=== PATIENT | male | born 1955 | race Caucasian/White ===

== ENCOUNTER 2017-04-10 13:51 | Emergency (ER) | payer MEDICAID ==
[~2017-04-10] VITALS: Ht 167.6 cm; Wt 68.4 kg
[2017-04-10 14:39] VITALS: Ht 167.6 cm; Wt 68.4 kg
[2017-04-10] MEDS ORDERED: traMADol 50 MG TAB PO ONE (15:30)
--- NOTE | 2017-04-10 15:49 | ERD ---
ER Documentation Chief Complaint Chief Complaint low back pain, shoulder pain x 2 weeks HPI 62-year-old male otherwise healthy presents with low back pain, left shoulder pain for 2 weeks as well as left lower leg swelling for a week. Patient describes diffuse left anterior shoulder pain that is worse with movement, she has had this for almost 2 weeks now and also low back pain. He denies shortness of breath, chest pain. ROS All systems reviewed and are negative except as per history of present illness. Medications Home Meds Active Scripts Acetaminophen* (Tylophen*) 500 Mg Capsule, 1 CAP PO Q6H Y for PAIN AND OR ELEVATED TEMP, #20 CAP Prov:KARL FLORENCE PA-C 04/10/17 Naproxen* (Naprosyn*) 500 Mg Tablet, 500 MG PO BID Y for PAIN AND/OR INFLAMMATION, #30 TAB Prov:KARL FLORENCE PA-C 04/10/17 PMhx/Soc Medical and Surgical Hx: pt denies Medical Hx, pt denies Surgical Hx History of Surgery: No Anesthesia Reaction: No Hx Neurological Disorder: No Hx Respiratory Disorders: No Hx Cardiac Disorders: No Hx Psychiatric Problems: No Hx Miscellaneous Medical Probl: No Hx Alcohol Use: No Hx Substance Use: No Hx Tobacco Use: No Smoking Status: Never smoker Physical Exam Vitals Vital Signs Date Time Temp Pulse Resp B/P Pulse Ox O2 Delivery O2 Flow Rate FiO2 04/10/17 14:39 98.4 69 16 161/94 100 Physical Exam General: Well-developed, well-nourished. The patient appears in no acute distress. HEENT: Head is normocephalic, atraumatic. No scleral icterus. Neck: Supple. Nontender. Lungs: Clear to auscultation. Normal air movement. Heart: Regular rate and rhythm. S1 and S2 are normal. No murmurs, gallops, or rubs. Abdomen: Soft, nontender, nondistended. Bowel sounds are normoactive. Extremities: Left shoulder has full range of motion, however there is reproducible pain with active range of motion. No bony deformities. There is swelling to the left lower extremity to the calf and foot. Pulses palpable, no cyanosis. Neurologic: Alert and oriented 3. No focal deficits. Skin: Normal turgor. No rash or lesions. Result Diagram: 04/10/17 1545 04/10/17 1545 Results 24 hrs Laboratory Tests Test 04/10/17 15:45 White Blood Count 5.410^3/ul Red Blood Count 3.5910^6/ul Hemoglobin 12.7g/dl Hematocrit 36.7% Mean Corpuscular Volume 102.2fl Mean Corpuscular Hemoglobin 35.4pg Mean Corpuscular Hemoglobin Concent 34.6g/dl Red Cell Distribution Width 13.0% Platelet Count 58979^3/UL Mean Platelet Volume 9.9fl Neutrophils % 64.0% Lymphocytes % 24.3% Monocytes % 7.2% Eosinophils % 3.2% Basophils % 0.7% Nucleated Red Blood Cells % 0.0/100WBC Neutrophils # 3.510^3/ul Lymphocytes # 1.310^3/ul Monocytes # 0.410^3/ul Eosinophils # 0.210^3/ul Basophils # 0.010^3/ul Nucleated Red Blood Cells # 0.010^3/ul Urine Color YELLOW Urine Clarity CLEAR Urine pH 5.0 Urine Specific [place] 1.020 Urine Ketones NEGATIVEmg/dL Urine Nitrite NEGATIVEmg/dL Urine Bilirubin NEGATIVEmg/dL Urine Urobilinogen 2+mg/dL Urine Leukocyte Esterase NEGATIVELeu/ul Urine Hemoglobin NEGATIVEmg/dL Urine Glucose NEGATIVEmg/dL Urine Total Protein NEGATIVEmg/dl Sodium Level 144mmol/L Potassium Level 3.9mmol/L Chloride Level 103mmol/L Carbon Dioxide Level 30mmol/L Anion Gap 15 Blood Urea Nitrogen 4mg/dl Creatinine 0.63mg/dl Glucose Level 101mg/dl Calcium Level 8.6mg/dl Total Bilirubin 0.2mg/dl Direct Bilirubin 0.00mg/dl Indirect Bilirubin 0.2mg/dl Aspartate Amino Transf (AST/SGOT) 33IU/L Alanine Aminotransferase (ALT/SGPT) 29IU/L Alkaline Phosphatase 124IU/L Total Protein 7.6g/dl Albumin 4.0g/dl Globulin 3.60g/dl Albumin/Globulin Ratio 1.11 Current Medications Medications (Trade) Dose Ordered Sig/Abdi Route PRN Reason Start Time Stop Time Status Last Admin Dose Admin Tramadol HCl (Ultram) 50 mg ONCE ONCE PO 04/10/17 15:30 04/10/17 15:31 DC 04/10/17 16:21 12-lead EKG(interpreted by supervising physician): Dr. Reyes-Panda Rate/Rhythm: Normal Sinus Rhythm, rate of 72 QRS, ST, T-waves: No changes consistent w/ acute ischemia, no intervals, no dysrhythmias, no ectopy Impression: No evidence of ischemia or arrhythmia DIAGNOSTIC IMAGING REPORT Patient: ASHA WHITFIELD : 1955 Age: 62 Sex: M MR #: [id number] DOS: 04/10/17 1549 Ordering MD: KARL FLORENCE PA-C Location: [facility] Room/Bed: PROCEDURE: XR Left Shoulder. CLINICAL INDICATION: Left shoulder pain. TECHNIQUE: Three views. Frontal internal rotation, frontal external rotation , and scapular Y-view. COMPARISON: No prior study is available for comparison. FINDINGS: There is no fracture or dislocation. The soft tissues are normal. Articular surfaces are intact. There is no lytic or blastic lesion. There is no radiopaque foreign body. IMPRESSION: 1. Normal images of the left shoulder. RPTAT: QQ .Tato Garcia MD, Date Time Electronically viewed and signed by .Tato Garcia MD, on 04/10/2017 17:13 .R/ CC: KARL FLORENCE PA-C DIAGNOSTIC IMAGING REPORT Patient: SAHA WHITFIELD : 1955 Age: 62 Sex: M MR #: [id number] DOS: 04/10/17 1549 Ordering MD: KARL FLORENCE PA-C Location: [facility] Room/Bed: PROCEDURE: XR Lumbar Spine. CLINICAL INDICATION: Back pain. TECHNIQUE: Three views. AP, lateral and cone-down lateral view of the lumbar spine were obtained. COMPARISON: No prior studies are available for comparison. FINDINGS: There is normal stature and alignment of the vertebrae. There is no fracture. There is no lytic or blastic lesion. There are degenerative changes with small osteophytes throughout. There is disc space narrowing at L5-S1 and hypertrophy of the facet joints at L4-5 and L5-S1. Vascular calcifications are present consistent with atherosclerosis. IMPRESSION: 1. Degenerative changes as described above. 2. Atherosclerosis. RPTAT: QQ .Tato Garcia MD, Date Time Electronically viewed and signed by .Tato Garcia MD, on 04/10/2017 17:13 .R/ CC: KARL FLORENCE PA-C DIAGNOSTIC IMAGING REPORT Patient: ASHA WHITFIELD : 1955 Age: 62 Sex: M MR #: [id number] DOS: 04/10/17 1528 Ordering MD: KARL FLORENCE PA-C Location: [facility] Room/Bed: PROCEDURE: US Lower extremity Venous. CLINICAL INDICATION: Left leg pain and swelling TECHNIQUE: Multiple sonographic images of the left lower extremity deep venous system was obtained utilizing grayscale, color-flow, compressive sonography and doppler imaging with augmentation. The images were reviewed on a PACS workstation. COMPARISON: None. FINDINGS: There is normal compressibility and flow within the left common femoral, deep femoral, superficial femoral and popliteal veins. Normal color flow is seen with respiratory variability and augmentation. IMPRESSION: No sonographic evidence for deep venous thrombosis in the left lower extremity. RPTAT: HPNM Physician Jenniffer Date Time Electronically viewed and signed by Physician Jenniffer on 04/10/2017 16 :15 / CC: KARL FLORENCE PA-C Procedures/[facility] M: 62-year-old male presents emergency room with low back pain, left shoulder pain, peripheral edema on the left side. Patient's EKG shows normal sinus rhythm, he had basic labs and there were no unremarkable the left shoulder is normal on x-ray, and lumbar spine series x-ray shows degenerative disc disease. Patient also presents with peripheral edema that is unilateral on the left side, and is to his foot and lower half of his leg, there is no evidence of DVT. I do not see signs of CHF exacerbation, cellulitis, limb threatening process, arterial injury. The patient is to recheck with his primary care doctor. Will be given Tylenol and Naprosyn for pain. Patient's blood pressure was elevated (>120/80) but appears stable without evidence of hypertension emergency or urgency. The patient was counseled about the risks of hypertension and urged to pursue outpatient monitoring and therapy within a week with their primary care physician. Departure Diagnosis: Primary Impression: Low back pain Additional Impressions: Shoulder pain, left Peripheral edema Condition: KARL Mauro PA-C Apr 10, 2017 15:49
--- NOTE | 2017-04-10 15:49 | ERD ---
ER Documentation Chief Complaint Chief Complaint low back pain, shoulder pain x 2 weeks HPI 62-year-old male otherwise healthy presents with low back pain, left shoulder pain for 2 weeks as well as left lower leg swelling for a week. Patient describes diffuse left anterior shoulder pain that is worse with movement, she has had this for almost 2 weeks now and also low back pain. He denies shortness of breath, chest pain. ROS All systems reviewed and are negative except as per history of present illness. Medications Home Meds Active Scripts Acetaminophen* (Tylophen*) 500 Mg Capsule, 1 CAP PO Q6H Y for PAIN AND OR ELEVATED TEMP, #20 CAP Prov:KARL FLORENCE PA-C 04/10/17 Naproxen* (Naprosyn*) 500 Mg Tablet, 500 MG PO BID Y for PAIN AND/OR INFLAMMATION, #30 TAB Prov:KARL FLORENCE PA-C 04/10/17 PMhx/Soc Medical and Surgical Hx: pt denies Medical Hx, pt denies Surgical Hx History of Surgery: No Anesthesia Reaction: No Hx Neurological Disorder: No Hx Respiratory Disorders: No Hx Cardiac Disorders: No Hx Psychiatric Problems: No Hx Miscellaneous Medical Probl: No Hx Alcohol Use: No Hx Substance Use: No Hx Tobacco Use: No Smoking Status: Never smoker Physical Exam Vitals Vital Signs Date Time Temp Pulse Resp B/P Pulse Ox O2 Delivery O2 Flow Rate FiO2 04/10/17 14:39 98.4 69 16 161/94 100 Physical Exam General: Well-developed, well-nourished. The patient appears in no acute distress. HEENT: Head is normocephalic, atraumatic. No scleral icterus. Neck: Supple. Nontender. Lungs: Clear to auscultation. Normal air movement. Heart: Regular rate and rhythm. S1 and S2 are normal. No murmurs, gallops, or rubs. Abdomen: Soft, nontender, nondistended. Bowel sounds are normoactive. Extremities: Left shoulder has full range of motion, however there is reproducible pain with active range of motion. No bony deformities. There is swelling to the left lower extremity to the calf and foot. Pulses palpable, no cyanosis. Neurologic: Alert and oriented 3. No focal deficits. Skin: Normal turgor. No rash or lesions. Result Diagram: 04/10/17 1545 04/10/17 1545 Results 24 hrs Laboratory Tests Test 04/10/17 15:45 White Blood Count 5.410^3/ul Red Blood Count 3.5910^6/ul Hemoglobin 12.7g/dl Hematocrit 36.7% Mean Corpuscular Volume 102.2fl Mean Corpuscular Hemoglobin 35.4pg Mean Corpuscular Hemoglobin Concent 34.6g/dl Red Cell Distribution Width 13.0% Platelet Count 15136^3/UL Mean Platelet Volume 9.9fl Neutrophils % 64.0% Lymphocytes % 24.3% Monocytes % 7.2% Eosinophils % 3.2% Basophils % 0.7% Nucleated Red Blood Cells % 0.0/100WBC Neutrophils # 3.510^3/ul Lymphocytes # 1.310^3/ul Monocytes # 0.410^3/ul Eosinophils # 0.210^3/ul Basophils # 0.010^3/ul Nucleated Red Blood Cells # 0.010^3/ul Urine Color YELLOW Urine Clarity CLEAR Urine pH 5.0 Urine Specific [place] 1.020 Urine Ketones NEGATIVEmg/dL Urine Nitrite NEGATIVEmg/dL Urine Bilirubin NEGATIVEmg/dL Urine Urobilinogen 2+mg/dL Urine Leukocyte Esterase NEGATIVELeu/ul Urine Hemoglobin NEGATIVEmg/dL Urine Glucose NEGATIVEmg/dL Urine Total Protein NEGATIVEmg/dl Sodium Level 144mmol/L Potassium Level 3.9mmol/L Chloride Level 103mmol/L Carbon Dioxide Level 30mmol/L Anion Gap 15 Blood Urea Nitrogen 4mg/dl Creatinine 0.63mg/dl Glucose Level 101mg/dl Calcium Level 8.6mg/dl Total Bilirubin 0.2mg/dl Direct Bilirubin 0.00mg/dl Indirect Bilirubin 0.2mg/dl Aspartate Amino Transf (AST/SGOT) 33IU/L Alanine Aminotransferase (ALT/SGPT) 29IU/L Alkaline Phosphatase 124IU/L Total Protein 7.6g/dl Albumin 4.0g/dl Globulin 3.60g/dl Albumin/Globulin Ratio 1.11 Current Medications Medications (Trade) Dose Ordered Sig/Abdi Route PRN Reason Start Time Stop Time Status Last Admin Dose Admin Tramadol HCl (Ultram) 50 mg ONCE ONCE PO 04/10/17 15:30 04/10/17 15:31 DC 04/10/17 16:21 12-lead EKG(interpreted by supervising physician): Dr. Reyes-Panda Rate/Rhythm: Normal Sinus Rhythm, rate of 72 QRS, ST, T-waves: No changes consistent w/ acute ischemia, no intervals, no dysrhythmias, no ectopy Impression: No evidence of ischemia or arrhythmia DIAGNOSTIC IMAGING REPORT Patient: ASHA WHITFIELD : 1955 Age: 62 Sex: M MR #: [id number] DOS: 04/10/17 1549 Ordering MD: KARL FLORENCE PA-C Location: [facility] Room/Bed: PROCEDURE: XR Left Shoulder. CLINICAL INDICATION: Left shoulder pain. TECHNIQUE: Three views. Frontal internal rotation, frontal external rotation , and scapular Y-view. COMPARISON: No prior study is available for comparison. FINDINGS: There is no fracture or dislocation. The soft tissues are normal. Articular surfaces are intact. There is no lytic or blastic lesion. There is no radiopaque foreign body. IMPRESSION: 1. Normal images of the left shoulder. RPTAT: QQ .Tato Garcia MD, Date Time Electronically viewed and signed by .Tato Garcia MD, on 04/10/2017 17:13 .R/ CC: KARL FLORENCE PA-C DIAGNOSTIC IMAGING REPORT Patient: ASHA WHITFIELD : 1955 Age: 62 Sex: M MR #: [id number] DOS: 04/10/17 1549 Ordering MD: KARL FLORENCE PA-C Location: [facility] Room/Bed: PROCEDURE: XR Lumbar Spine. CLINICAL INDICATION: Back pain. TECHNIQUE: Three views. AP, lateral and cone-down lateral view of the lumbar spine were obtained. COMPARISON: No prior studies are available for comparison. FINDINGS: There is normal stature and alignment of the vertebrae. There is no fracture. There is no lytic or blastic lesion. There are degenerative changes with small osteophytes throughout. There is disc space narrowing at L5-S1 and hypertrophy of the facet joints at L4-5 and L5-S1. Vascular calcifications are present consistent with atherosclerosis. IMPRESSION: 1. Degenerative changes as described above. 2. Atherosclerosis. RPTAT: QQ .Tato Garcia MD, Date Time Electronically viewed and signed by .Tato Garcia MD, on 04/10/2017 17:13 .R/ CC: KARL FLORENCE PA-C DIAGNOSTIC IMAGING REPORT Patient: ASHA WHITFIELD : 1955 Age: 62 Sex: M MR #: [id number] DOS: 04/10/17 1528 Ordering MD: KARL FLORENCE PA-C Location: [facility] Room/Bed: PROCEDURE: US Lower extremity Venous. CLINICAL INDICATION: Left leg pain and swelling TECHNIQUE: Multiple sonographic images of the left lower extremity deep venous system was obtained utilizing grayscale, color-flow, compressive sonography and doppler imaging with augmentation. The images were reviewed on a PACS workstation. COMPARISON: None. FINDINGS: There is normal compressibility and flow within the left common femoral, deep femoral, superficial femoral and popliteal veins. Normal color flow is seen with respiratory variability and augmentation. IMPRESSION: No sonographic evidence for deep venous thrombosis in the left lower extremity. RPTAT: HPNM Physician Jenniffer Date Time Electronically viewed and signed by Physician Jenniffer on 04/10/2017 16 :15 / CC: KARL FLORENCE PA-C Procedures/[facility] M: 62-year-old male presents emergency room with low back pain, left shoulder pain, peripheral edema on the left side. Patient's EKG shows normal sinus rhythm, he had basic labs and there were no unremarkable the left shoulder is normal on x-ray, and lumbar spine series x-ray shows degenerative disc disease. Patient also presents with peripheral edema that is unilateral on the left side, and is to his foot and lower half of his leg, there is no evidence of DVT. I do not see signs of CHF exacerbation, cellulitis, limb threatening process, arterial injury. The patient is to recheck with his primary care doctor. Will be given Tylenol and Naprosyn for pain. Patient's blood pressure was elevated (>120/80) but appears stable without evidence of hypertension emergency or urgency. The patient was counseled about the risks of hypertension and urged to pursue outpatient monitoring and therapy within a week with their primary care physician. Departure Diagnosis: Primary Impression: Low back pain Additional Impressions: Shoulder pain, left Peripheral edema Condition: KARL Mauro PA-C Apr 10, 2017 15:49
--- NOTE | 2017-04-10 16:15 | RADRPT ---
PROCEDURE: US Lower extremity Venous. CLINICAL INDICATION: Left leg pain and swelling TECHNIQUE: Multiple sonographic images of the left lower extremity deep venous system was obtained utilizing grayscale, color-flow, compressive sonography and doppler imaging with augmentation. The images were reviewed on a PACS workstation. COMPARISON: None. FINDINGS: There is normal compressibility and flow within the left common femoral, deep femoral, superficial f emoral and popliteal veins. Normal color flow is seen with respiratory variability and augmentation. IMPRESSION: No sonographic evidence for deep venous thrombosis in the left lower extremity. RPTAT: HPNM Physician Jenniffer Date Time Electronically viewed and signed by Physician Jenniffer on 04/10/2017 16:15 /
--- NOTE | 2017-04-10 17:13 | RADRPT ---
PROCEDURE: XR Left Shoulder. CLINICAL INDICATION: Left shoulder pain. TECHNIQUE: Three views. Frontal internal rotation, frontal external rotation, and scapular Y-view . COMPARISON: No prior study is available for comparison. FINDINGS: There is no fracture or dislocation. The soft tissues are normal. Articular surfaces are intact. There is no lytic or blastic lesion. There is no radiopaque foreign body. IMPRESSION: 1. Normal images of the left shoulder. RPTAT: QQ .Tato Garcia MD, MD Date Time Electronically viewed and signed by .Tato Garcia MD, on 04/10/2017 17:13 .R/
--- NOTE | 2017-04-10 17:14 | RADRPT ---
PROCEDURE: XR Lumbar Spine. CLINICAL INDICATION: Back pain. TECHNIQUE: Three views. AP, lateral and cone-down lateral view of the lumbar spine were obtained. COMPARISON: No prior studies are available for comparison. FINDINGS: There is normal stature and alignment of the vertebrae. There is no fracture. There is no lytic or blastic lesion. There are degenerative changes with small osteophytes throughout. There is disc space narrowing at L 5-S1 and hypertrophy of the facet joints at L4-5 and L5-S1. Vascular calcifications are present consistent with atherosclerosis. IMPRESSION: 1. Degenerative changes as described above. 2. Atherosclerosis. RPTAT: QQ .Tato Garcia MD, MD Date Time Electronically viewed and signed by .Tato Garcia MD, on 04/10/2017 17:13 .R/
[2017-04-10] MEDS ORDERED: NAPR-260 PO (17:23)
[2017-04-10] MEDS ORDERED: ACET500C5 PO (17:23)
== END 2017-04-10 17:42 | disposition home or self-care (01) ==
LOC: FTE 13:51
DX: M54.5 Low back pain (principal); M25.512 Pain in left shoulder; R60.0 Localized edema
CPT/HCPCS: 36415; 72100; 73030; 80053; 81003; 85025; 93005; 93971; Z7502; Z7610

== ENCOUNTER 2017-04-29 18:39 | Inpatient (IN) | payer MEDICAID ==
[~2017-04-29] VITALS: Ht 167.6 cm; Wt 68.1 kg
[~2017-04-29 18:39] MED LIST: ACET500C5 PO; NAPR-260 PO
[2017-04-29] MEDS ORDERED: morphine 4 MG/ML VIAL IV STA ×2 (19:08→22:15)
[2017-04-29] MEDS ORDERED: ONDANSETRON 4 MG INJ IV STA (19:08)
[2017-04-29] MEDS ORDERED: SOD CHLORIDE 0.9% 1,000 ML IV STA (19:08)
[2017-04-29 19:36] LABS: HEMOGLOBIN 11.5 g/dl (14.0-18.0); MEAN CORPUSCULAR HEMOGLOBIN 33.9 pg (29.0-33.0); MEAN CORPUSCULAR HGB CONC 34.8 g/dl (32.0-37.0); MEAN CORPUSCULAR VOLUME 97.3 fl (82.0-101.0); MEAN PLATELET VOLUME 11.6 fl (7.4-10.4); POSITIVE DIFF @See below; RED BLOOD COUNT 3.39 10^6/ul (4.70-6.10); RED CELL DISTRIBUTION WIDTH 12.7 % (11.5-14.5); WHITE BLOOD COUNT 6.4 10^3/ul (4.8-10.8)
[2017-04-29 19:46] LABS: PLATELET COUNT 139 10^3/UL (140-415)
[2017-04-29] MEDS ORDERED: LACTATED RINGER'S 1,000 ML IV ONE (20:00)
[2017-04-29 20:08] LABS: ANISOCYTOSIS 2+ (0-0); BASOPHILS % (M) 1 % (0-2); BURR CELLS 1+ (0-0); EOSINOPHILS % (M) 1 % (0-7); GIANT THROMBO% (M) 1 % (0-0); METAMYELOCYTES %M 1 % (0-0); MONOCYTES % (M) 6 % (0-11); PLATELET ESTIMATE DECREASED; POIKILOCYTOSIS 1+ (0-0)
--- NOTE | 2017-04-29 21:00 | RADRPT ---
PROCEDURE: CT abdomen and pelvis without IV contrast. CLINICAL INDICATION: Abdomen pain. TECHNIQUE: CT scan of the abdomen and pelvis was performed on a [address] scanner. The patient is scanned without IV contrast. Coronal and sagittal reformatted images were obtained from the axia l source images. Images were reviewed on a high-resolution PACS workstation. DICOM images are avai lable. Total radiation dose: Total CTDIvol: 8.6 mGy. Total DLP: 488 mGy-cm. One or more of the following d ose reduction techniques were used: automated exposure control, adjustment of the mA and/or kV accor ding to patient size, or use of iterative reconstruction technique. COMPARISON: None available. FINDINGS: CT abdomen: There are a few tiny nodules in the both lung bases, measuring up to 0.7 cm. There are tiny patchy i nfiltrates in the right lung base. The heart is not enlarged without pericardial thickening or effu bijan. There is moderate hiatal hernia. There is mild hepatosplenomegaly. The stomach is partially collapsed but is grossly unremarkable. The pancreas as visualized is normal. The gallbladder is normal and there is no evidence of biliary dilatation. The adrenal glands are symmetrical and normal. The kidneys are symmetrically normal bilaterally. N o renal obstructive uropathy or mass lesion is seen.. The aorta is normal in caliber. There is no retroperitoneal lymphadenopathy. The cyndy hepatis reg ion is clear. There is diverticulosis of the left colon without evidence of diverticulitis. There i s moderate periaortic retroperitoneal and retrocrural lymphadenopathy. CT pelvis: There is moderate right inguinal lymphadenopathy. There is moderate right external iliac lymphadenop athy. There is small inguinal hernia bilaterally, containing the fat. There is diverticulosis of the sigmoid colon without evidence of diverticulitis. The small bowel loops situated within the pelvis are unremarkable. The pelvic organs are normal. The pelvic sidewalls are clear. No mass, lymphad enopathy is seen. No acute inflammation seen. The urinary bladder is normal. The surrounding osseous structures are unremarkable. There are a few tiny bony sclerosis in the L1, T12 and T11 vertebral bodies. IMPRESSION: 1. Moderate periaortic retroperitoneal and retrocrural lymphadenopathy. Moderate right inguinal and right external iliac lymphadenopathy. Differential includes lymphoma. 2. Mild hepatosplenomegaly. 3. Diverticulosis of the sigmoid colon/left colon without evidence of diverticulitis. 4. Small bilateral inguinal hernia, containing the fat. 5. A few tiny nodules in the both lung bases, measuring up to 0.7 cm. RPTAT: GG .Brian Astorga MD, MD Date Time Electronically viewed and signed by .Brian Astorga MD, on 04/29/2017 20:59 .Y/
[2017-04-29 21:08] LABS: ALBUMIN 3.3 g/dl (3.3-4.9); ALBUMIN/GLOBULIN RATIO 0.97; BILIRUBIN,INDIRECT 0.4 mg/dl (0-1.1); BILIRUBIN,TOTAL 0.4 mg/dl (0.2-1.3); CALCIUM 9.4 mg/dl (8.4-10.2); CREATININE 0.62 mg/dl (0.61-1.24); TOTAL PROTEIN 6.7 g/dl (6.1-8.1)
[2017-04-29 21:24] LABS: POTASSIUM 4.8 mmol/L (3.5-5.1)
[2017-04-29 22:08] LABS: ADD UMIC NO; UR ASCORBIC ACID NEGATIVE (NEGATIVE); UR BILIRUBIN (Dip) NEGATIVE (NEGATIVE); UR BLOOD (Dip) NEGATIVE (NEGATIVE); UR CLARITY CLEAR (CLEAR); UR COLOR STRAW (YELLOW); UR GLUCOSE (Dip) NEGATIVE (NEGATIVE); UR KETONES (Dip) NEGATIVE (NEGATIVE); UR LEUKOCYTE ESTERASE (Dip) NEGATIVE Leu/ul (NEGATIVE); UR NITRITE (Dip) NEGATIVE (NEGATIVE); UR SPECIFIC GRAVITY (Dip) 1.005 (1.003-1.030); UR TOTAL PROTEIN (Dip) NEGATIVE (NEGATIVE); UR UROBILINOGEN (Dip) NEGATIVE (NEGATIVE)
[2017-04-29] MEDS ORDERED: KETOROLAC 30 MG INJ IV STA (22:15)
[2017-04-29] MEDS ORDERED: morphine 10 MG INJ IV ONE (23:30)
[2017-04-29] MEDS ORDERED: ACETAMINOPHEN 325 MG TAB PO PRN (23:30)
[2017-04-29] MEDS ORDERED: ONDANSETRON 4 MG INJ IV PRN (23:30)
[2017-04-30] MEDS ORDERED: NACL 0.9% 3 ML SYG IV SCH
[2017-04-30] MEDS ORDERED: ALBUTEROL/IPRATROPIUM (NEB) 3 ML AMP HHN PRN
[2017-04-30] MEDS ORDERED: LABETALOL HCL 20MG INJ IV ONE
--- NOTE | 2017-04-30 00:22 | ERD ---
ER Documentation Chief Complaint Chief Complaint RLQ abd pain x 4 days HPI 62-year-old male presents with pain in his right lower quadrant as well as his left abdomen on and off increasing in severity for 4 days. States the pain is now severe. He thinks states he may have had twinges of pain on and off for some time. He has no history of hypertension but is severely hypertensive in triage. Denies any chest pain or shortness of breath. He has some nausea but has not vomited. States that he has normal bowel movements. ROS All systems reviewed and are negative except as per history of present illness. Medications Home Meds Active Scripts Acetaminophen* (Tylophen*) 500 Mg Capsule, 1 CAP PO Q6H Y for PAIN AND OR ELEVATED TEMP, #20 CAP Prov:KARL FLORENCE PA-C 04/10/17 Naproxen* (Naprosyn*) 500 Mg Tablet, 500 MG PO BID Y for PAIN AND/OR INFLAMMATION, #30 TAB Prov:KARL FLORENCE PA-C 04/10/17 Allergies Allergies: Coded Allergies: No Known Allergy (Unverified , 04/29/17) PMhx/Soc History of Surgery: Yes (L inguinal hernia) Anesthesia Reaction: No Hx Neurological Disorder: No Hx Respiratory Disorders: No Hx Cardiac Disorders: No Hx Psychiatric Problems: No Hx Miscellaneous Medical Probl: Yes (back pain) Hx Alcohol Use: No Hx Substance Use: No Hx Tobacco Use: No Smoking Status: Never smoker Physical Exam Vitals Vital Signs Date Time Temp Pulse Resp B/P Pulse Ox O2 Delivery O2 Flow Rate FiO2 04/29/17 23:00 77 17 167/117 95 Room Air 04/29/17 22:00 75 17 165/106 95 Room Air 04/29/17 21:30 76 15 159/101 95 Room Air 04/29/17 18:46 98.3 73 20 165/94 98 Physical Exam Const: [] Moderate distress, appears very uncomfortable Head: Atraumatic Eyes: Normal Conjunctiva ENT: Normal External Ears, Nose and Mouth. Neck: Full range of motion..~ No meningismus. No JVD Resp: Clear to auscultation bilaterally Cardio: Regular rate and rhythm, no murmurs Abd: Soft, moderate right lower quadrant and right mid abdominal tenderness without guarding or rebound, non distended. Normal bowel sounds Skin: No petechiae or rashes Back: No midline or flank tenderness Ext: No cyanosis, or edema Neur: Awake and alert oriented 3, no focal deficit Psych: Normal Mood and Affect Result Diagram: 04/29/17192704/29/171944 Results 24 hrs Laboratory Tests Test 04/29/17 19:28 04/29/17 19:45 04/29/17 21:55 White Blood Count 6.410^3/ul Red Blood Count 3.3910^6/ul Hemoglobin 11.5g/dl Hematocrit 33.0% Mean Corpuscular Volume 97.3fl Mean Corpuscular Hemoglobin 33.9pg Mean Corpuscular Hemoglobin Concent 34.8g/dl Red Cell Distribution Width 12.7% Platelet Count 53225^3/UL Mean Platelet Volume 11.6fl Segmented Neutrophils % (Manual) 65% Band Neutrophils % (Manual) 2% Lymphocytes % (Manual) 24% Monocytes % (Manual) 6% Eosinophils % (Manual) 1% Basophils % (Manual) 1% Metamyelocytes % (manual) 1% Nucleated Red Blood Cells % 0.0/100WBC Neutrophils # (Manual) 4.210^3/ul Band Neutrophils # 0.110^3/ul Absolute Lymphocytes (Manual) 1.510^3/ul Absolute Monocytes (Manual) 0.310^3/ul Basophils # (Manual) 0.010^3/ul Metamyelocytes # 0.010^3/ul Platelet Estimate DECREASED Giant Platelets 1% Poikilocytosis 1+ Anisocytosis 2+ Macrocytosis 1+ Sodium Level 140mmol/L Potassium Level 4.8mmol/L Chloride Level 105mmol/L Carbon Dioxide Level 28mmol/L Anion Gap 12 Blood Urea Nitrogen 9mg/dl Creatinine 0.62mg/dl Glucose Level 107mg/dl Calcium Level 9.4mg/dl Total Bilirubin 0.4mg/dl Direct Bilirubin 0.00mg/dl Indirect Bilirubin 0.4mg/dl Aspartate Amino Transf (AST/SGOT) 36IU/L Alanine Aminotransferase (ALT/SGPT) 37IU/L Alkaline Phosphatase 139IU/L Total Protein 6.7g/dl Albumin 3.3g/dl Globulin 3.40g/dl Albumin/Globulin Ratio 0.97 Lipase 61U/L Urine Color STRAW Urine Clarity CLEAR Urine pH 7.0 Urine Specific [place] 1.005 Urine Ketones NEGATIVEmg/dL Urine Nitrite NEGATIVEmg/dL Urine Bilirubin NEGATIVEmg/dL Urine Urobilinogen NEGATIVEmg/dL Urine Leukocyte Esterase NEGATIVELeu/ul Urine Hemoglobin NEGATIVEmg/dL Urine Glucose NEGATIVEmg/dL Urine Total Protein NEGATIVEmg/dl Current Medications Medications (Trade) Dose Ordered Sig/Abdi Route PRN Reason Start Time Stop Time Status Last Admin Dose Admin Sodium Chloride (NS) 1,000 ml @ 1,000 mls/hr Q1H STAT IV 04/29/17 19:08 04/29/17 19:33 DC Morphine Sulfate (morphine) 4 mg ONCE STAT IV 04/29/17 19:08 04/29/17 19:10 DC 04/29/17 19:36 Ondansetron HCl 4 mg 4 mg ONCE STAT IV 04/29/17 19:08 04/29/17 19:10 DC 04/29/17 19:36 Lactated Ringer's (Lr) 1,000 ml @ 1,000 mls/hr Q1H ONCE IV 04/29/17 20:00 04/29/17 20:59 DC 04/29/17 19:36 Ketorolac Tromethamine (Toradol) 30 mg ONCE STAT IV 04/29/17 22:15 04/29/17 22:20 DC 04/29/17 23:26 Morphine Sulfate (morphine) 4 mg ONCE STAT IV 04/29/17 22:15 04/29/17 22:16 DC 04/29/17 23:27 Ondansetron HCl (Zofran Inj) 4 mg BRIDGE ORDER PRN IV NAUSEA AND/OR VOMITING 04/29/17 23:30 04/30/17 23:29 Acetaminophen (Tylenol Tab) 650 mg ER BRIDGE PRN PO MILD PAIN/FEVER 04/29/17 23:30 04/30/17 23:29 Morphine Sulfate (morphine) 6 mg ONCE ONCE IV 04/29/17 23:30 04/29/17 23:31 DC IV Flush (NS 3 ml) 3 ml PER PROTOCOL IV 04/30/17 00:00 UNV Ondansetron HCl (Zofran Inj) 4 mg Q6H PRN IV NAUSEA AND/OR VOMITING 04/30/17 00:00 UNV Acetaminophen (Tylenol Tab) 650 mg Q6H PRN PO PAIN LEVEL 1-3 OR FEVER 04/30/17 00:00 UNV Morphine Sulfate (morphine) 2 mg Q4H PRN IV SEVERE PAIN LEVEL 7-10 04/30/17 00:00 UNV Famotidine (Pepcid) 20 mg Q12 PO 04/30/17 09:00 UNV Albuterol/ Ipratropium (Duoneb) 3 ml Q2H RESP THERAPY PRN HHN SHORTNESS OF BREATH 04/30/17 00:00 UNV Labetalol HCl (Labetalol) 20 mg ONCE ONCE IV 04/30/17 00:00 04/30/17 00:01 DC 04/30/17 00:02 Procedures/MDM Patient with intractable abdominal pain as well as severe hypertension and evidence of undiagnosed neoplasm. There is no other concerning acute process that I can see. Have low concern for acute coronary syndrome secondary to the patient's pain all being in his lower abdomen and having no chest pain or shortness of breath. He has no bowel obstruction, no free air. I doubt serious bacterial infection. He is been given a liter of IV fluids as well as Zofran which resolved his nausea however he still has significant abdominal pain after 3 doses of morphine and 1 dose of Toradol. Was given labetalol for his hypertension when pain control did not work to lower it with a consistent diastolic over 100. Labetalol did lower his pressure. He is being admitted to Dr. Flores for further monitoring and possible oncological consult. The abdomen pelvis interpretation: See no acute process. I see no obstruction of bowel, no free air perforation, no acute fractures. There are enlarged lymph nodes as mentioned by the radiologist and multiple areas of the abdomen concerning for neoplasm. Rate monitor interpretation: Normal sinus without arrhythmia. Critical care time greater than 35 minutes: This includes treatment of severe hypertension that would require ICU admission of had not been corrected, use of labetalol as vasoactive medication, multiple visits patient's bedside to reassess status, 2 of chart, discussion with patient and admitting doctor. 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
[2017-04-30 00:43] VITALS: Ht 167.6 cm; Wt 68.1 kg
[2017-04-30 00:50] VITALS: BP 138/73; RESP 18
[2017-04-30 02:16] VITALS: BP 130/78; RESP 20
[2017-04-30 06:39] LABS: BASOPHILS % 0.4 % (0.0-2.0); EOSINOPHILS # 0.2 10^3/ul (0.0-0.5); EOSINOPHILS % 4.5 % (0.0-7.0); HEMATOCRIT 34.6 % (42.0-52.0); HEMOGLOBIN 11.7 g/dl (14.0-18.0); LYMPHOCYTES # 1.3 10^3/ul (0.8-2.9); LYMPHOCYTES % 28.7 % (15.0-51.0); MEAN CORPUSCULAR HEMOGLOBIN 33.8 pg (29.0-33.0); MEAN CORPUSCULAR HGB CONC 33.8 g/dl (32.0-37.0); MEAN PLATELET VOLUME 11.9 fl (7.4-10.4); MONOCYTE # 0.4 10^3/ul (0.3-0.9); MONOCYTES % 7.8 % (0.0-11.0); NEUTROPHIL # 2.6 10^3/ul (1.6-7.5); NEUTROPHILS % 57.3 % (39.0-77.0); PLATELET COUNT 144 10^3/UL (140-415); RED BLOOD COUNT 3.46 10^6/ul (4.70-6.10); RED CELL DISTRIBUTION WIDTH 12.5 % (11.5-14.5); WHITE BLOOD COUNT 4.5 10^3/ul (4.8-10.8)
--- NOTE | 2017-04-30 06:42 | HP ---
Date/Time of Note Date/Time of Note DATE: 04/30/17 TIME: 06:35 Assessment/Plan VTE Prophylaxis VTE Prophylaxis Intervention: SCD's Lines/Catheters IV [facility]ter Type [facility]from [facility] [place] Assessment/Plan Assessment/Plan ASSESSMENT 62-year-old male with no significant past medical history was intermittent abdominal pain was found to have moderate periaortic retroperitoneal and retrocrural lymphadenopathy, moderate right inguinal and right external iliac lymphadenopathy, sigmoid diverticulosis and few tiny nodules in the both lung bases, worrisome for malignancy. PLAN I dont think CT findings are result of lipomas like pt seems to believe.(see HPI ) Need Oncology consult Lymph node biopsy Dedicated chest CT for further evaluation of the tiny nodules Pain management HPI/ROS Admit Date/Time Admit Date/Time Apr 29, 2017 at 23:10 Hx of Present Illness This is a 62-year-old male with no significant past medical history who presented to the emergency department complaining of abdominal pain. Pain is mainly localized in RLQ. He reported intermittent abdominal pain for quite some time but this particular episode started about 4 days ago and has been progressively getting worse. Reported and intermittent nausea. Denied fever/ chills, constipation or diarrhea. Denied any relationship of the pain with food. When he initially presented to the ER, he had a blood pressure of 167/[address] abdomen/pelvis showed Moderate periaortic retroperitoneal and retrocrural lymphadenopathy, moderate right inguinal and right external iliac lymphadenopathy, sigmoid diverticulosis and few tiny nodules in the both lung bases, measuring up to 0.[address] findings to him, he stated that long time ago in [facility], he was told he had swellings in his abdomen and had a malignancy w/u, which was neg per pt. No sure if bx was done. He has few what appear to be lipomas in his back. PMH/Family/Social Social History Smoking Status: Former smoker Exam/Review of Systems Vital Signs Vitals Vital Signs Date Time Temp Pulse Resp B/P Pulse Ox O2 Delivery O2 Flow Rate FiO2 04/30/17 02:16 97.7 70 20 130/78 96 04/30/17 00:13 Room Air Intake and Output 04/29/17 04/29/17 04/30/17 15:00 23:00 07:00 Intake Total 240 ml Balance 240 ml Exam Constitutional: alert, oriented, well developed Head: atraumatic, normocephalic Eyes: EOMI, PERRL Respiratory: clear to auscultation, normal air movement Cardiovascular: nl pulses, regular rate and rhythm Gastrointestinal: soft, tender Extremities: normal pulses Labs Result Diagram: 04/29/17192704/29/171944 Medications Medications Current Medications Ondansetron HCl (Zofran Inj) 4 mg Q6H PRN IV NAUSEA AND/OR VOMITING; Start at 00:00 Acetaminophen (Tylenol Tab) 650 mg Q6H PRN PO PAIN LEVEL 1-3 OR FEVER; Start 04/30/17 at 00:00 Morphine Sulfate (morphine) 2 mg Q4H PRN IV SEVERE PAIN LEVEL 7-10; Start at 00:00 Famotidine (Pepcid) 20 mg Q12 PO ; Start 04/30/17 at 09:00 BIRGIT STEINBERG MD Apr 30, 2017 06:42
[2017-04-30 06:51] LABS: ALBUMIN 3.1 g/dl (3.3-4.9); BILIRUBIN,INDIRECT 0.5 mg/dl (0-1.1); BILIRUBIN,TOTAL 0.5 mg/dl (0.2-1.3); CALCIUM 9.6 mg/dl (8.4-10.2); CHOL/HDL RATIO 4.3 RATIO; CREATININE 0.67 mg/dl (0.61-1.24); MAGNESIUM 1.5 mg/dl (1.7-2.5); PHOSPHORUS 5.2 mg/dl (2.5-4.9); POTASSIUM 4.8 mmol/L (3.5-5.1); TOTAL PROTEIN 6.2 g/dl (6.1-8.1)
[2017-04-30] MEDS: morphine 2 MG INJ IV PRN (06:54)
[2017-04-30 08:00] VITALS: BP 171/82; RESP 18
[2017-04-30] MEDS: FAMOTIDINE 20 MG TAB PO SCH ×2 (08:10→20:34)
[2017-04-30 08:18] LABS: IRON 81 ug/dl (35-150)
[2017-04-30 08:28] LABS: TOTAL IRON BINDING CAPACITY 248 ug/dl (241-421)
[2017-04-30 08:55] LABS: FERRITIN 97.3 ng/ml (11.1-264.0)
[2017-04-30] MEDS ORDERED: IOHEXOL 300MG/ML 150 ML BTL ONE (09:07)
[2017-04-30] MEDS ORDERED: SOD CHLORIDE 0.9% 100 ML ONE (09:07)
--- NOTE | 2017-04-30 09:32 | QN ---
Documentation Comment * Patient admitted for RLQ abd pain x [address] abd/pelvis concerning for diffuse lymphadenopathy. * Also noted is isolated episodes of elevated BP with no prior diagnosis of HTN * Hypomagnesemia PLAN: agree with Chest CT with IV contrast planned for this morning Willl have oncology review Patient has never had colonoscopy and will benefit from one but this maybe pursued as outpt if no other indication to stay inpt. SMITH ARMENDARIZ Apr 30, 2017 09:32
[2017-04-30 10:20] VITALS: BP 142/72; PULSE 75
[2017-04-30] MEDS ORDERED: MAGNESIUM SULFATE 2 GM/50 ML 50 ML IVPB ONE (10:30)
--- NOTE | 2017-04-30 10:44 | RADRPT ---
PROCEDURE: CT Chest with contrast. CLINICAL INDICATION: Pulmonary nodules, shortness of breath TECHNIQUE: CT scan of the chest with contrast was performed on a multidetector high-resolution CT scanner. Coronal and sagittal reformatted images were obtained from the axial source images. The to terrell exam CTDI equals 9 mGy and the total exam DLP equals 365 mGy-cm. 90 cc of Isovue 300 was adminis tered intravenously without reported complication. One or more of the following dose reduction techn iques were used: Automated exposure control, Adjustment of the mA and/or kV according to patient siz e, and/or use of iterative reconstruction technique. DICOM images are available. COMPARISON: Correlation abdominal CT yesterday. FINDINGS: Emphysematous changes. Numerous scattered pulmonary sub-centimeter nodules are identified with surro unding ground-glass. For example there is a 3 mm nodule in the right upper lobe (series 4 image 53). Interlobular septal thickening in the lung bases. Bulky mediastinal and bilateral hilar lymphadenopathy is seen. Enlarged subcarinal lymph node measur es 3.7 x 2.1 cm. Small to moderate hiatal hernia. No significant pleural or pericardial effusion. Coronary arterial and aortic atherosclerosis. Partially imaged upper abdominal retroperitoneal lymphadenopathy. Hypoattenuation of the liver. Indeterminate sclerotic lesions are identified at the spine most notably at the anterior T5 , T9, T1 1, T12 and L1 vertebral bodies. IMPRESSION: Emphysematous changes. Bulky mediastinal and bilateral hilar lymphadenopathy is worrisome for lymphoma or beto metastatic disease. Numerous scattered pulmonary sub-centimeter nodules with surrounding ground-glass is suggestive of i nfection/inflammation, however, pulmonary metastatic disease is not excluded. Indeterminate sclerotic lesions are identified at the spine most notably at the anterior T5 , T9, T1 1, T12 and L1 vertebral bodies. These may represent bone islands or osseous metastatic disease. Small to moderate hiatal hernia. RPTAT: AA .Marquez Garcia MD, Date Time Electronically viewed and signed by .Marquez Garcia MD, MD on 04/30/2017 10:44 .T/
[2017-04-30 11:13] LABS: HAAIG REFLEX REFLEX FILED
[2017-04-30 11:21] LABS: LACTATE DEHYDROGENASE 727 IU/L (313-618); URIC ACID 5.7 mg/dl (3.1-7.9)
[2017-04-30 12:11] LABS: HEPATITIS B CORE ANTIBODY NEGATIVE (NEGATIVE)
[2017-04-30 14:00] VITALS: BP 119/76; RESP 18
--- NOTE | 2017-04-30 16:27 | CONS ---
Date/Time of Note Date/Time of Note DATE: 04/30/17 TIME: 16:20 Assessment/Plan Assessment/Plan Chief Complaint/Hosp Course #Diffuse LAD with periaortic retroperitoneal, retrocrural, right inguinal and right external iliac lymphadenopathy. #Bulky mediastinal and bilateral hilar lymphadenopathy is worrisome for lymphoma or beto metastatic disease. #Indeterminate sclerotic lesions are identified at the spine most notably at the anterior T5 , T9, T11, T12 and L1 vertebral bodies. These may represent bone islands or osseous metastatic disease. -given concern for lymphoma will need to send for IR guided Bx of the inguinal LN -will check Uric acid and LDH in case of highly proliferative lymphoma -check ESR -check HIV and hep panel -further recommendation will be based on the results of above tests Problems: Consultation Date/Type/Reason Admit Date/Time Apr 29, 2017 at 23:10 Date of Consultation: Apr 30, 2017 Type of Consultation: Hematology Reason for Consultation lymphadenopathy Referring Provider: SMITH ARMENDARIZ Hx of Present Illness 62-year-old male with no significant past medical history who presented to the emergency department on 04/29 with complaints of abdominal pain localized to RLQ. He states the pain started 4 days ago. He denies any blood in the stool, constipation or diarrhea. CT abdomen/pelvis demonstrated moderate periaortic retroperitoneal and retrocrural lymphadenopathy, moderate right inguinal and right external iliac lymphadenopathy, sigmoid diverticulosis and few tiny nodules in the both lung bases, measuring up to 0.7 cm. Per reports, pt states that a long time ago in [facility], he was told he had swellings in his abdomen and had a malignancy w/u, which was neg per pt. Subjective hx not possible: pt non-verbal Constitutional: no complaints Eyes: no complaints ENT: no complaints Respiratory: no complaints Cardiovascular: no complaints Gastrointestinal: decreased appetite, pain, passing stool Genitourinary: no complaints Musculoskeletal: bone/joint pain Skin: no complaints Past Medical History Medical History: no pertinent history Past Surgical History Past Surgical Hx: no surgical history Family History Significant Family History: no pertinent family hx Social History Alcohol Use: none Smoking Status: Former smoker Drug Use: none Exam/Review of Systems Vital Signs Vitals Vital Signs Date Time Temp Pulse Resp B/P Pulse Ox O2 Delivery O2 Flow Rate FiO2 04/30/17 14:00 97.8 74 18 119/76 97 04/30/17 00:13 Room Air Intake and Output 04/29/17 04/29/17 04/30/17 15:00 23:00 07:00 Intake Total 240 ml Balance 240 ml Exam Constitutional: alert, oriented Psych: no complaints Head: normocephalic Eyes: nl conjunctiva ENMT: nl external ears & nose Neck: non-tender, supple Respiratory: clear to auscultation Cardiovascular: regular rate and rhythm Gastrointestinal: soft Musculoskeletal: nl extremities to inspection Extremities: other (palpable inguinal LAD) Results Result Diagram: 04/30/17 0519 04/30/17 0519 Results 24 hrs Laboratory Tests Test 04/29/17 19:28 04/29/17 19:45 04/29/17 21:55 04/30/17 05:17 White Blood Count 6.4 Red Blood Count 3.39 L Hemoglobin 11.5 L Hematocrit 33.0 L Mean Corpuscular Volume 97.3 Mean Corpuscular Hemoglobin 33.9 H Mean Corpuscular Hemoglobin Concent 34.8 Red Cell Distribution Width 12.7 Platelet Count 139 #L Mean Platelet Volume 11.6 H Segmented Neutrophils % (Manual) 65 Band Neutrophils % (Manual) 2 Lymphocytes % (Manual) 24 Monocytes % (Manual) 6 Eosinophils % (Manual) 1 Basophils % (Manual) 1 Metamyelocytes % (manual) 1 H Nucleated Red Blood Cells % 0.0 Neutrophils # (Manual) 4.2 Band Neutrophils # 0.1 Absolute Lymphocytes (Manual) 1.5 Absolute Monocytes (Manual) 0.3 Basophils # (Manual) 0.0 Metamyelocytes # 0.0 Platelet Estimate DECREASED Giant Platelets 1 H Poikilocytosis 1+ Anisocytosis 2+ Macrocytosis 1+ Sodium Level 140 Potassium Level 4.8 Chloride Level 105 Carbon Dioxide Level 28 Anion Gap 12 Blood Urea Nitrogen 9 Creatinine 0.62 Glucose Level 107 Calcium Level 9.4 Total Bilirubin 0.4 Direct Bilirubin 0.00 Indirect Bilirubin 0.4 Aspartate Amino Transf (AST/SGOT) 36 Alanine Aminotransferase (ALT/SGPT) 37 Alkaline Phosphatase 139 H Total Protein 6.7 Albumin 3.3 Globulin 3.40 H Albumin/Globulin Ratio 0.97 Lipase 61 Urine Color STRAW Urine Clarity CLEAR Urine pH 7.0 Urine Specific [place] 1.005 Urine Ketones NEGATIVE Urine Nitrite NEGATIVE Urine Bilirubin NEGATIVE Urine Urobilinogen NEGATIVE Urine Leukocyte Esterase NEGATIVE Urine Hemoglobin NEGATIVE Urine Glucose NEGATIVE Urine Total Protein NEGATIVE Erythrocyte Sedimentation Rate 15 Iron Level 81 Total Iron Binding Capacity 248 Percent Iron Saturation 33 Ferritin 97.3 Lactate Dehydrogenase 718 H Test 04/30/17 05:19 04/30/17 06:32 White Blood Count 4.5 #L Red Blood Count 3.46 L Hemoglobin 11.7 L Hematocrit 34.6 L Mean Corpuscular Volume 100.0 Mean Corpuscular Hemoglobin 33.8 H Mean Corpuscular Hemoglobin Concent 33.8 Red Cell Distribution Width 12.5 Platelet Count 144 Mean Platelet Volume 11.9 H Neutrophils % 57.3 Lymphocytes % 28.7 Monocytes % 7.8 Eosinophils % 4.5 Basophils % 0.4 Nucleated Red Blood Cells % 0.0 Neutrophils # 2.6 Lymphocytes # 1.3 Monocytes # 0.4 Eosinophils # 0.2 Basophils # 0.0 Nucleated Red Blood Cells # 0.0 Sodium Level 142 Potassium Level 4.8 Chloride Level 104 Carbon Dioxide Level 30 Anion Gap 13 Blood Urea Nitrogen 8 Creatinine 0.67 Glucose Level 90 Calcium Level 9.6 Phosphorus Level 5.2 H Magnesium Level 1.5 L Total Bilirubin 0.5 Direct Bilirubin 0.00 Indirect Bilirubin 0.5 Aspartate Amino Transf (AST/SGOT) 36 Alanine Aminotransferase (ALT/SGPT) 36 Alkaline Phosphatase 125 H Total Protein 6.2 Albumin 3.1 L Globulin 3.10 Albumin/Globulin Ratio 1.00 Triglycerides Level 99 Cholesterol Level 191 LDL Cholesterol, Calculated 127 HDL Cholesterol 44 Cholesterol/HDL Ratio 4.3 Free Thyroxine Index 2.55 Thyroxine (T4) 8.8 Triiodothyronine (T3) Uptake 29.0 Uric Acid 5.7 Lactate Dehydrogenase 727 H Hepatitis B Surface Antigen NEGATIVE Hepatitis B Core Total Antibody NEGATIVE Hepatitis C Antibody NEGATIVE HIV (1&2) Antibody NEGATIVE Medications Medications Current Medications Ondansetron HCl (Zofran Inj) 4 mg Q6H PRN IV NAUSEA AND/OR VOMITING; Start at 00:00 Acetaminophen (Tylenol Tab) 650 mg Q6H PRN PO PAIN LEVEL 1-3 OR FEVER; Start 04/30/17 at 00:00 Morphine Sulfate (morphine) 2 mg Q4H PRN IV SEVERE PAIN LEVEL 7-10 Last administered on 04/30/17t 06:54; Admin Dose 2 MG; Start 04/30/17 at 00:00 Famotidine (Pepcid) 20 mg Q12 PO Last administered on 04/30/17 08:10; Admin Dose 20 MG; Start 04/30/17 at 09:00 SAUL JOY M.D. Apr 30, 2017 16:27
[2017-04-30] MEDS: ACETAMINOPHEN 325 MG TAB PO PRN (18:38)
[2017-04-30 20:00] VITALS: BP 143/81; RESP 20
[2017-05-01 02:23] VITALS: BP 177/84; RESP 18
[2017-05-01] MEDS ORDERED: hydrALAzine 20 MG INJ IV PRN (02:30)
[2017-05-01 03:52] VITALS: BP 130/74
[2017-05-01 05:56] LABS: CALCIUM 9.8 mg/dl (8.4-10.2); CREATININE 0.64 mg/dl (0.61-1.24); MAGNESIUM 1.8 mg/dl (1.7-2.5); POTASSIUM 4.1 mmol/L (3.5-5.1)
[2017-05-01 06:26] LABS: INR 0.94; PARTIAL THROMBOPLASTIN TIME 30.9 Sec (25.0-35.0); PROTIME 12.6 Sec (12.2-14.2)
[2017-05-01] MEDS: FAMOTIDINE 20 MG TAB PO SCH ×2 (07:48→20:25)
[2017-05-01 08:04] VITALS: BP 165/76; RESP 16
[2017-05-01] MEDS: morphine 2 MG INJ IV PRN ×2 (10:16→20:26)
[2017-05-01] MEDS: ONDANSETRON 4 MG INJ IV PRN (10:16)
--- NOTE | 2017-05-01 10:19 | PN ---
Date/Time of Note Date/Time of Note DATE: 05/01/17 TIME: 10:05 Assessment/Plan VTE Prophylaxis VTE Prophylaxis Intervention: SCD's Lines/Catheters IV Catheter Type (from [facility]): Saline Lock Assessment/Plan Assessment/Plan ASSESSMENT 62-year-old male with no significant past medical history was intermittent abdominal pain was found to have moderate periaortic retroperitoneal and retrocrural lymphadenopathy, moderate right inguinal and right external iliac lymphadenopathy, sigmoid diverticulosis and few tiny nodules in the both lung bases, worrisome for malignancy. 2. HTN: patient has had recurrent episodes of significantly elevated BP. Will start Low dose antihypertensives. PLAN CT chest concerning for malignancy / Labs reviewed with elevated LDH / f/u biopsy results / GI consult / Appreciate onc review. Subjective 24 Hr Interval Summary Free Text/Dictation Patient seen and examined. Planned for Lymphnode biopsy today, c/o of mild headache and would like something for pain. Exam/Review of Systems Vital Signs Vitals Vital Signs Date Time Temp Pulse Resp B/P Pulse Ox O2 Delivery O2 Flow Rate FiO2 05/01/17 08:04 98.4 84 16 165/76 97 04/30/17 00:13 Room Air Intake and Output 04/30/17 04/30/17 05/01/17 15:00 23:00 07:00 Intake Total 50 ml 1040 ml 300 ml Balance 50 ml 1040 ml 300 ml Exam Constitutional: alert, oriented, No distress Head: atraumatic, normocephalic Eyes: PERRL, No icteric Neck: non-tender, supple Respiratory: clear to auscultation Cardiovascular: regular rate and rhythm, No murmurs/extra sounds Gastrointestinal: ascites, non-tender, soft Extremities: No edema Neurological: nl mental status, No focal weakness Results Result Diagram: 04/30/17 0519 05/01/17 0451 Results 24 hrs Laboratory Tests Test 05/01/17 03:00 05/01/17 04:51 Stool Occult Blood NEGATIVE Prothrombin Time 12.6 Prothrombin Time Ratio 1.0 INR International Normalized Ratio 0.94 Activated Partial Thromboplast Time 30.9 Sodium Level 141 Potassium Level 4.1 Chloride Level 103 Carbon Dioxide Level 29 Anion Gap 13 Blood Urea Nitrogen 9 Creatinine 0.64 Glucose Level 103 Calcium Level 9.8 Magnesium Level 1.8 Medications Medications Current Medications Ondansetron HCl (Zofran Inj) 4 mg Q6H PRN IV NAUSEA AND/OR VOMITING; Start at 00:00 Acetaminophen (Tylenol Tab) 650 mg Q6H PRN PO PAIN LEVEL 1-3 OR FEVER Last administered on 04/30/17 18:38; Admin Dose 650 MG; Start 04/30/17 at 00:00 Morphine Sulfate (morphine) 2 mg Q4H PRN IV SEVERE PAIN LEVEL 7-10 Last administered on 04/30/17 06:54; Admin Dose 2 MG; Start 04/30/17 at 00:00 Famotidine (Pepcid) 20 mg Q12 PO Last administered on 04/30/17 20:34; Admin Dose 20 MG; Start 04/30/17 at 09:00 Hydralazine HCl (Apresoline) 10 mg Q4H PRN IV ELEVATED SYSTOLIC BP Last administered on 05/01/17 02:25; Admin Dose 10 MG; Start 05/01/17 at 02:30 Procedures Procedures PROCEDURE: CT Chest with contrast. CLINICAL INDICATION: Pulmonary nodules, shortness of breath TECHNIQUE: CT scan of the chest with contrast was performed on a multidetector high-resolution CT scanner. Coronal and sagittal reformatted images were obtained from the axial source images. The total exam CTDI equals 9 mGy and the total exam DLP equals 365 mGy-cm. 90 cc of Isovue 300 was administered intravenously without reported complication. One or more of the following dose reduction techniques were used: Automated exposure control, Adjustment of the mA and/or kV according to patient size, and/or use of iterative reconstruction technique. DICOM images are available. COMPARISON: Correlation abdominal CT yesterday. FINDINGS: Emphysematous changes. Numerous scattered pulmonary sub-centimeter nodules are identified with surrounding ground-glass. For example there is a 3 mm nodule in the right upper lobe (series 4 image 53). Interlobular septal thickening in the lung bases. Bulky mediastinal and bilateral hilar lymphadenopathy is seen. Enlarged subcarinal lymph node measures 3.7 x 2.1 cm. Small to moderate hiatal hernia. No significant pleural or pericardial effusion. Coronary arterial and aortic atherosclerosis. Partially imaged upper abdominal retroperitoneal lymphadenopathy. Hypoattenuation of the liver. Indeterminate sclerotic lesions are identified at the spine most notably at the anterior T5 , T9, T11, T12 and L1 vertebral bodies. IMPRESSION: Emphysematous changes. Bulky mediastinal and bilateral hilar lymphadenopathy is worrisome for lymphoma or beto metastatic disease. Numerous scattered pulmonary sub-centimeter nodules with surrounding ground- glass is suggestive of infection/inflammation, however, pulmonary metastatic disease is not excluded. Indeterminate sclerotic lesions are identified at the spine most notably at the anterior T5 , T9, T11, T12 and L1 vertebral bodies. These may represent bone islands or osseous metastatic disease. Small to moderate hiatal hernia. RPTAT: AA .Marquez Garcia MD, MD Date Time Electronically viewed and signed by .Marquez Garcia MD, MD on 04/30/2017 10:44 .T/ CC: BIRGIT STEINBERG MD, BOLATITO M. May 01, 2017 10:16
--- NOTE | 2017-05-01 12:50 | CONS ---
Date/Time of Note Date/Time of Note DATE: 05/01/17 TIME: 12:46 Assessment/Plan Assessment/Plan Chief Complaint/Hosp Course #Diffuse LAD with periaortic retroperitoneal, retrocrural, right inguinal and right external iliac lymphadenopathy. #Bulky mediastinal and bilateral hilar lymphadenopathy is worrisome for lymphoma or beto metastatic disease. #Indeterminate sclerotic lesions are identified at the spine most notably at the anterior T5 , T9, T11, T12 and L1 vertebral bodies. These may represent bone islands or osseous metastatic disease. -given concern for lymphoma will need to send for IR guided Bx of the inguinal LN -LDH mildly elevated to 727 but urin acid ok at 5.2. no signs of tumor lysis at this time -will check Uric acid and LDH in case of highly proliferative lymphoma -ESR ok at 15 -HIV and hep panel are both negative -further recommendation will be based on the results of above tests Problems: Consultation Date/Type/Reason Admit Date/Time Apr 29, 2017 at 23:10 Initial Consult Date 04/30/17 Type of Consultation: Hematology Reason for Consultation diffuse Lymphadenopathy Referring Provider: SMITH ARMENDARIZ 24 HR Interval Summary Free Text/Dictation pt to have bx today. abd pain is stable Exam/Review of Systems Vital Signs Vitals Vital Signs Date Time Temp Pulse Resp B/P Pulse Ox O2 Delivery O2 Flow Rate FiO2 05/01/17 08:04 98.4 84 16 165/76 97 04/30/17 00:13 Room Air Intake and Output 04/30/17 04/30/17 05/01/17 15:00 23:00 07:00 Intake Total 50 ml 1040 ml 300 ml Balance 50 ml 1040 ml 300 ml Exam Constitutional: alert Psych: no complaints Eyes: nl conjunctiva ENMT: nl external ears & nose Neck: non-tender, supple Respiratory: clear to auscultation Cardiovascular: nl pulses, regular rate and rhythm Gastrointestinal: other (palpable LAD stable), soft Musculoskeletal: nl extremities to inspection Results Result Diagram: 04/30/17 0519 05/01/17 0451 Results 24 hrs Laboratory Tests Test 05/01/17 03:00 05/01/17 04:51 Stool Occult Blood NEGATIVE Prothrombin Time 12.6 Prothrombin Time Ratio 1.0 INR International Normalized Ratio 0.94 Activated Partial Thromboplast Time 30.9 Sodium Level 141 Potassium Level 4.1 Chloride Level 103 Carbon Dioxide Level 29 Anion Gap 13 Blood Urea Nitrogen 9 Creatinine 0.64 Glucose Level 103 Calcium Level 9.8 Magnesium Level 1.8 Medications Medications Current Medications Ondansetron HCl (Zofran Inj) 4 mg Q6H PRN IV NAUSEA AND/OR VOMITING Last administered on 05/01/17 10:16; Admin Dose 4 MG; Start 04/30/17 at 00:00 Acetaminophen (Tylenol Tab) 650 mg Q6H PRN PO PAIN LEVEL 1-3 OR FEVER Last administered on 04/30/17 18:38; Admin Dose 650 MG; Start 04/30/17 at 00:00 Morphine Sulfate (morphine) 2 mg Q4H PRN IV SEVERE PAIN LEVEL 7-10 Last administered on 05/01/17 10:16; Admin Dose 2 MG; Start 04/30/17 at 00:00 Famotidine (Pepcid) 20 mg Q12 PO Last administered on 04/30/17 20:34; Admin Dose 20 MG; Start 04/30/17 at 09:00 Hydralazine HCl (Apresoline) 10 mg Q4H PRN IV ELEVATED SYSTOLIC BP Last administered on 05/01/17 02:25; Admin Dose 10 MG; Start 05/01/17 at 02:30 SAUL JOY M.D. May 01, 2017 12:50
[2017-05-01] MEDS ORDERED: LIDOCAINE 1% (MDV) 20 ML INJ ONE (12:56)
[2017-05-01 14:48] VITALS: BP 144/91; RESP 16
--- NOTE | 2017-05-01 14:56 | RADRPT ---
PROCEDURE: Ultrasound guided right inguinal lymph node biopsy. CLINICAL INDICATION: Right inguinal lymphadenopathy. TECHNIQUE: Prior to the procedure, informed consent was obtained. Risks including bleeding and in fection were explained to the patient. The patient understood and was willing to proceed. A procedu ral pause was performed. The patient's name, date of , and procedure to be performed were veri fied. Using local anesthetic, sterile technique and ultrasound guidance, an 18-gauge automated core biopsy needle was used to biopsy of the enlarged lymph node in the right inguinal region. Multiple passes were made. Adequate tissue was obtained according to the pathologist present during the biopsy. T he patient tolerated the procedure well. COMPARISON: CT scan of the abdomen and pelvis dated 04/29/2017. FINDINGS: Images demonstrate the right inguinal lymphadenopathy and subsequent images demonstrate needle withi n the enlarged lymph node in the right inguinal region. IMPRESSION: 1. Satisfactory ultrasound-guided right inguinal lymphadenopathy biopsy. RPTAT: QQ .Tato Garcia MD, MD Date Time Electronically viewed and signed by .Tato Garcia MD, on 05/01/2017 14:55 .R/
[2017-05-01 20:04] VITALS: BP 138/89; RESP 18
[2017-05-02 02:19] VITALS: BP 151/88; RESP 18
[2017-05-02] MEDS: FAMOTIDINE 20 MG TAB PO SCH ×2 (08:18→19:54)
[2017-05-02 08:40] VITALS: BP 130/73; RESP 20
--- NOTE | 2017-05-02 09:06 | CONS ---
Date/Time of Note Date/Time of Note DATE: 05/02/17 TIME: 09:04 Assessment/Plan Assessment/Plan Chief Complaint/Hosp Course #Diffuse LAD with periaortic retroperitoneal, retrocrural, right inguinal and right external iliac lymphadenopathy. #Bulky mediastinal and bilateral hilar lymphadenopathy is worrisome for lymphoma or beto metastatic disease. #Indeterminate sclerotic lesions are identified at the spine most notably at the anterior T5 , T9, T11, T12 and L1 vertebral bodies. These may represent bone islands or osseous metastatic disease. -pt is s/p IR guided Bx of the inguinal LN -LDH mildly elevated to 727 but uric acid ok at 5.2. no signs of tumor lysis at this time -will check Uric acid and LDH in case of highly proliferative lymphoma -ESR ok at 15 -HIV and hep panel are both negative -further recommendation will be based on the results of above tests Problems: Consultation Date/Type/Reason Admit Date/Time Apr 30, 2017 at 12:10 Initial Consult Date 04/30/17 Type of Consultation: Hematology Reason for Consultation Diffuse lymphadenopathy. Referring Provider: SMITH ARMENDARIZ 24 HR Interval Summary Free Text/Dictation Patient tolerated the biopsy well yesterday. No acute overnight events Exam/Review of Systems Vital Signs Vitals Vital Signs Date Time Temp Pulse Resp B/P Pulse Ox O2 Delivery O2 Flow Rate FiO2 05/02/17 08:40 98.1 96 20 130/73 98 04/30/17 00:13 Room Air Intake and Output 05/01/17 05/01/17 05/02/17 15:00 23:00 07:00 Intake Total 560 ml 350 ml Output Total 500 ml Balance 60 ml 350 ml Exam Constitutional: alert, oriented Psych: no complaints Head: normocephalic Eyes: nl conjunctiva ENMT: nl external ears & nose Neck: non-tender, supple Respiratory: clear to auscultation, normal air movement Cardiovascular: regular rate and rhythm Gastrointestinal: soft Musculoskeletal: nl extremities to inspection Extremities: normal pulses Lymph: other (palpable groin lymph nodes) Results Result Diagram: 04/30/17 0519 05/01/17 0451 Medications Medications Current Medications Ondansetron HCl (Zofran Inj) 4 mg Q6H PRN IV NAUSEA AND/OR VOMITING Last administered on 05/01/17t 10:16; Admin Dose 4 MG; Start 04/30/17 at 00:00 Acetaminophen (Tylenol Tab) 650 mg Q6H PRN PO PAIN LEVEL 1-3 OR FEVER Last administered on 04/30/17 18:38; Admin Dose 650 MG; Start 04/30/17 at 00:00 Morphine Sulfate (morphine) 2 mg Q4H PRN IV SEVERE PAIN LEVEL 7-10 Last administered on 05/01/17 20:26; Admin Dose 2 MG; Start 04/30/17 at 00:00 Famotidine (Pepcid) 20 mg Q12 PO Last administered on 05/02/17 08:18; Admin Dose 20 MG; Start 04/30/17 at 09:00 Hydralazine HCl (Apresoline) 10 mg Q4H PRN IV ELEVATED SYSTOLIC BP Last administered on 05/01/17 02:25; Admin Dose 10 MG; Start 05/01/17 at 02:30 SAUL JOY M.D. May 02, 2017 09:06
[2017-05-02] MEDS: morphine 2 MG INJ IV PRN ×3 (10:34→19:55)
[2017-05-02] MEDS ORDERED: BISACODYL (EC) 5 MG TAB PO ONE (12:30)
[2017-05-02] MEDS: AMLODIPINE 5 MG TAB PO SCH (12:56)
--- NOTE | 2017-05-02 18:17 | PN ---
Date/Time of Note Date/Time of Note DATE: 05/02/17 TIME: 18:13 Assessment/Plan VTE Prophylaxis VTE Prophylaxis Intervention: SCD's Lines/Catheters IV Catheter Type (from Nrsg): Saline Lock Assessment/Plan Assessment/Plan 1. 62-year-old male with no significant past medical history was intermittent abdominal pain was found to have moderate periaortic retroperitoneal and retrocrural lymphadenopathy, moderate right inguinal and right external iliac lymphadenopathy, sigmoid diverticulosis and few tiny nodules in the both lung bases, worrisome for malignancy.: s/p R inguinal node biopsy. 2. New HTN: patient has had recurrent episodes of significantly elevated BP. PLAN treat constipation, may belp with abd discomfort, once patient feels better, he may be discharged for outpt f/u with oncology for biopsy results. Subjective 24 Hr Interval Summary Free Text/Dictation patient c/o diffuse abd discomfort and headache. No good BM in a few days states biopsy went well Exam/Review of Systems Vital Signs Vitals Vital Signs Date Time Temp Pulse Resp B/P Pulse Ox O2 Delivery O2 Flow Rate FiO2 05/02/17 08:40 98.1 96 20 130/73 98 04/30/17 00:13 Room Air Intake and Output 05/01/17 05/01/17 05/02/17 15:00 23:00 07:00 Intake Total 560 ml 350 ml Output Total 500 ml Balance 60 ml 350 ml Exam Constitutional: alert, oriented, No distress Head: atraumatic, normocephalic Eyes: PERRL, No icteric Neck: non-tender, supple Respiratory: clear to auscultation Cardiovascular: regular rate and rhythm, No murmurs/extra sounds Gastrointestinal: ascites, non-tender, soft Extremities: No edema Neurological: nl mental status, No focal weakness Results Result Diagram: 04/30/17 0519 05/01/17 0451 Medications Medications Current Medications Ondansetron HCl (Zofran Inj) 4 mg Q6H PRN IV NAUSEA AND/OR VOMITING Last administered on 05/01/17 10:16; Admin Dose 4 MG; Start 04/30/17 at 00:00 Acetaminophen (Tylenol Tab) 650 mg Q6H PRN PO PAIN LEVEL 1-3 OR FEVER Last administered on 04/30/17 18:38; Admin Dose 650 MG; Start 11/27/17 at 00:00 Morphine Sulfate (morphine) 2 mg Q4H PRN IV SEVERE PAIN LEVEL 7-10 Last administered on 05/02/17 15:52; Admin Dose 2 MG; Start 04/30/17 at 00:00 Famotidine (Pepcid) 20 mg Q12 PO Last administered on 05/02/17 08:18; Admin Dose 20 MG; Start 04/30/17 at 09:00 Hydralazine HCl (Apresoline) 10 mg Q4H PRN IV ELEVATED SYSTOLIC BP Last administered on 05/01/17 02:25; Admin Dose 10 MG; Start 05/01/17 at 02:30 Amlodipine Besylate (Norvasc) 5 mg DAILY PO Last administered on 05/02/17 12: 56; Admin Dose 5 MG; Start 05/02/17 at 12:30 SMITH ARMENDARIZ May 02, 2017 18:17
[2017-05-02 18:26] VITALS: BP 126/78; RESP 20
[2017-05-02 20:36] VITALS: BP 143/84; RESP 18
[2017-05-03 02:18] VITALS: BP 116/70; RESP 18
[2017-05-03 07:30] VITALS: BP 133/94; RESP 18
[2017-05-03] MEDS: AMLODIPINE 5 MG TAB PO SCH (09:18)
[2017-05-03] MEDS: FAMOTIDINE 20 MG TAB PO SCH ×2 (09:18→19:56)
[2017-05-03] MEDS: morphine 2 MG INJ IV PRN ×2 (09:38→18:22)
[2017-05-03] MEDS: ACETAMINOPHEN 325 MG TAB PO PRN (10:51)
[2017-05-03] MEDS ORDERED: HYDROCODONE/APAP (5/325) TAB PO PRN (13:30)
[2017-05-03 14:00] VITALS: BP 111/74; RESP 20
--- NOTE | 2017-05-03 17:03 | CONS ---
Date/Time of Note Date/Time of Note DATE: 05/03/17 TIME: 17:01 Assessment/Plan Assessment/Plan Chief Complaint/Hosp Course #Diffuse LAD with periaortic retroperitoneal, retrocrural, right inguinal and right external iliac lymphadenopathy. #Bulky mediastinal and bilateral hilar lymphadenopathy is worrisome for lymphoma or beto metastatic disease. #Indeterminate sclerotic lesions are identified at the spine most notably at the anterior T5 , T9, T11, T12 and L1 vertebral bodies. These may represent bone islands or osseous metastatic disease. -pt is no confirmed to have metastatic prostate cancer -will initiate treatment in our office with Lupron and Zometa. given his bulky disease, will likely start Zytiga upfront per LATITUDE trial whic demonstrated overall survival when used in castrate sensitive patients -LDH mildly elevated to 727 but uric acid ok at 5.2. no signs of tumor lysis at this time -will check Uric acid and LDH in case of highly proliferative lymphoma -ESR ok at 15 -HIV and hep panel are both negative -pt may follow up with me in clinic in 1-2 weeks Problems: Consultation Date/Type/Reason Admit Date/Time Apr 30, 2017 at 12:10 Initial Consult Date 04/30/17 Type of Consultation: Hematology Reason for Consultation prostate cancer Referring Provider: SMITH ARMENDARIZ 24 HR Interval Summary Free Text/Dictation pt now confirmed to have prostate cancer Exam/Review of Systems Vital Signs Vitals Vital Signs Date Time Temp Pulse Resp B/P Pulse Ox O2 Delivery O2 Flow Rate FiO2 05/03/17 14:00 98.3 80 20 111/74 96 04/30/17 00:13 Room Air Intake and Output 05/02/17 05/02/17 05/03/17 15:00 23:00 07:00 Intake Total 1180 ml 240 ml Output Total 1100 ml 2 ml Balance 80 ml 238 ml Exam Constitutional: alert, oriented Psych: no complaints Head: normocephalic Eyes: nl conjunctiva ENMT: nl external ears & nose Neck: supple Respiratory: clear to auscultation, normal air movement Cardiovascular: nl pulses, regular rate and rhythm Gastrointestinal: soft Musculoskeletal: nl extremities to inspection, nl gait and stance Results Result Diagram: 04/30/17 0519 05/01/17 0451 Medications Medications Current Medications Ondansetron HCl (Zofran Inj) 4 mg Q6H PRN IV NAUSEA AND/OR VOMITING Last administered on 05/01/17 10:16; Admin Dose 4 MG; Start 04/30/17 at 00:00 Acetaminophen (Tylenol Tab) 650 mg Q6H PRN PO PAIN LEVEL 1-3 OR FEVER Last administered on 05/03/17 10:51; Admin Dose 650 MG; Start 04/30/17 at 00:00 Morphine Sulfate (morphine) 2 mg Q4H PRN IV SEVERE PAIN LEVEL 7-10 Last administered on 05/03/17 09:38; Admin Dose 2 MG; Start 04/30/17 at 00:00 Famotidine (Pepcid) 20 mg Q12 PO Last administered on 05/03/17 09:18; Admin Dose 20 MG; Start 04/30/17 at 09:00 Hydralazine HCl (Apresoline) 10 mg Q4H PRN IV ELEVATED SYSTOLIC BP Last administered on 05/01/17 02:25; Admin Dose 10 MG; Start 05/01/17 at 02:30 Amlodipine Besylate (Norvasc) 5 mg DAILY PO Last administered on 05/03/17 09: 18; Admin Dose 5 MG; Start 05/02/17 at 12:30 Acetaminophen/ Hydrocodone Bitart (Veyo (5/325)) 1 tab Q6H PRN PO PAIN LEVEL 6 -10 Last administered on 05/03/17 16:03; Admin Dose 1 TAB; Start 05/03/17 at 13:30 SAUL JOY M.D. May 03, 2017 17:03
[2017-05-03 20:00] VITALS: BP 145/85; RESP 20
[2017-05-04 02:00] VITALS: BP 133/79; RESP 20
[2017-05-04] MEDS: morphine 2 MG INJ IV PRN ×3 (02:19→13:18)
[2017-05-04 07:43] VITALS: BP 142/83; RESP 18
[2017-05-04] MEDS: FAMOTIDINE 20 MG TAB PO SCH (08:33)
[2017-05-04] MEDS: ONDANSETRON 4 MG INJ IV PRN (08:33)
[2017-05-04] MEDS: AMLODIPINE 5 MG TAB PO SCH (08:34)
--- NOTE | 2017-05-04 11:17 | DS ---
Date/Time of Note Date/Time of Note DATE: 05/04/17 TIME: 11:13 Discharge Summary Admission/Discharge Info Admit Date/Time Apr 30, 2017 at 12:10 Discharge Date/Time 05/04/17 Discharge Diagnosis * Newly diagnosed Metastatic Prostate Cancer * L shoulder pain likely 2/2 Mets * Hypertension : (new diagnosis): Controlled . Patient Condition: Stable Consults * Oncology: Lakia Silva . Procedures Ultrasound guided right inguinal lymph node biopsy. . Hx of Present Illness CLINICAL INDICATION: Pulmonary nodules, shortness of breath TECHNIQUE: CT scan of the chest with contrast was performed on a multidetector high-resolution CT scanner. Coronal and sagittal reformatted images were obtained from the axial source images. The total exam CTDI equals 9 mGy and the total exam DLP equals 365 mGy-cm. 90 cc of Isovue 300 was administered intravenously without reported complication. One or more of the following dose reduction techniques were used: Automated exposure control, Adjustment of the mA and/or kV according to patient size, and/or use of iterative reconstruction technique. DICOM images are available. COMPARISON: Correlation abdominal CT yesterday. FINDINGS: Emphysematous changes. Numerous scattered pulmonary sub-centimeter nodules are identified with surrounding ground-glass. For example there is a 3 mm nodule in the right upper lobe (series 4 image 53). Interlobular septal thickening in the lung bases. Bulky mediastinal and bilateral hilar lymphadenopathy is seen. Enlarged subcarinal lymph node measures 3.7 x 2.1 cm. Small to moderate hiatal hernia. No significant pleural or pericardial effusion. Coronary arterial and aortic atherosclerosis. Partially imaged upper abdominal retroperitoneal lymphadenopathy. Hypoattenuation of the liver. Indeterminate sclerotic lesions are identified at the spine most notably at the anterior T5 , T9, T11, T12 and L1 vertebral bodies. IMPRESSION: Emphysematous changes. Bulky mediastinal and bilateral hilar lymphadenopathy is worrisome for lymphoma or beto metastatic disease. Numerous scattered pulmonary sub-centimeter nodules with surrounding ground- glass is suggestive of infection/inflammation, however, pulmonary metastatic disease is not excluded. Indeterminate sclerotic lesions are identified at the spine most notably at the anterior T5 , T9, T11, T12 and L1 vertebral bodies. These may represent bone islands or osseous metastatic disease. Small to moderate hiatal hernia. RPTAT: AA .Marquez Garcia MD, MD Date Time Electronically viewed and signed by .Marquez Garcia MD, MD on 04/30/2017 10:44 PROCEDURE: CT abdomen and pelvis without IV contrast. CLINICAL INDICATION: Abdomen pain. TECHNIQUE: CT scan of the abdomen and pelvis was performed on a [address] scanner. The patient is scanned without IV contrast. Coronal and sagittal reformatted images were obtained from the axial source images. Images were reviewed on a high-resolution PACS workstation. DICOM images are available. Total radiation dose: Total CTDIvol: 8.6 mGy. Total DLP: 488 mGy-cm. One or more of the following dose reduction techniques were used: automated exposure control, adjustment of the mA and/or kV according to patient size, or use of iterative reconstruction technique. COMPARISON: None available. FINDINGS: CT abdomen: There are a few tiny nodules in the both lung bases, measuring up to 0.7 cm. There are tiny patchy infiltrates in the right lung base. The heart is not enlarged without pericardial thickening or effusion. There is moderate hiatal hernia. There is mild hepatosplenomegaly. The stomach is partially collapsed but is grossly unremarkable. The pancreas as visualized is normal. The gallbladder is normal and there is no evidence of biliary dilatation. The adrenal glands are symmetrical and normal. The kidneys are symmetrically normal bilaterally. No renal obstructive uropathy or mass lesion is seen.. The aorta is normal in caliber. There is no retroperitoneal lymphadenopathy. The cyndy hepatis region is clear. There is diverticulosis of the left colon without evidence of diverticulitis. There is moderate periaortic retroperitoneal and retrocrural lymphadenopathy. CT pelvis: There is moderate right inguinal lymphadenopathy. There is moderate right external iliac lymphadenopathy. There is small inguinal hernia bilaterally, containing the fat. There is diverticulosis of the sigmoid colon without evidence of diverticulitis. The small bowel loops situated within the pelvis are unremarkable. The pelvic organs are normal. The pelvic sidewalls are clear. No mass, lymphadenopathy is seen. No acute inflammation seen. The urinary bladder is normal. The surrounding osseous structures are unremarkable. There are a few tiny bony sclerosis in the L1, T12 and T11 vertebral bodies. IMPRESSION: 1. Moderate periaortic retroperitoneal and retrocrural lymphadenopathy. Moderate right inguinal and right external iliac lymphadenopathy. Differential includes lymphoma. 2. Mild hepatosplenomegaly. 3. Diverticulosis of the sigmoid colon/left colon without evidence of diverticulitis. 4. Small bilateral inguinal hernia, containing the fat. 5. A few tiny nodules in the both lung bases, measuring up to 0.7 cm. RPTAT: GG .Brian Astorga MD, MD Date Time Electronically viewed and signed by .Brian Astorga MD, MD on 04/29/2017 20:59 .Y/ CC: TAHIR MARQUEZ DO . Hospital Course This pleasant 62-year-old male presented to our facility with abdominal pain and was found by CAT scan to have multiple lymphadenopathy that were concerning for malignancy. Based on that he was worked up extensively including serial lab work as well as a right inguinal lymph node biopsy as well as a CT scan of the chest and these confirmed metastatic prostate adenocarcinoma with possible metastases to the chest. He was seen by oncology who is going to start him on outpatient chemotherapy regimen. However the patient complained of right shoulder pain that seems to be nerve related and he had an x-ray of the shoulder that did not show any abnormalities we will be adjusting his pain medication as this may be malignancy pain and will have continued follow-up with his primary care physician as outpatient. At this time patient is stable for discharge and he will follow up with oncology for further care. . Home Meds Active Scripts Acetaminophen* (Tylophen*) 500 Mg Capsule, 1 CAP PO Q6H Y for PAIN AND OR ELEVATED TEMP, #20 CAP Prov:KARL FLORENCE PA-C 04/10/17 Naproxen* (Naprosyn*) 500 Mg Tablet, 500 MG PO BID Y for PAIN AND/OR INFLAMMATION, #30 TAB Prov:KARL FLORENCE PA-C 04/10/17 Follow-up Plan Call Dr. Silva's office for follow-up. She can help with your cancer Name, Degree: Lakia Silva MD Specialty: Oncology, Hematology Comments: Office Address: [address] [place] [address] Office or [phone] (after hours) Office Followup with your primary doctor within the next 1-2 weeks. If you don't have one please let someone know, we can give you resources that may help you pick one. You may call Dr Luke Suárez's office. he's accepting new patients Name, Degree: Luke Suárez MD Specialty: Internal Medicine Comments: Office Address: [address] [facility] [address] [place], [place] [id number] Office Office You may also call your insurance company to assign one to you. Review your medication list with your nurse before leaving and if you need new prescriptions please let your nurse know. I may have made changes to your home medications or given you new prescriptions, please let your primary doctor know as well. Stay compliant with your medications and report any side effects to your PCP or pharmacist. Return to the ER if you have any concerns and cannot reach your doctors or call your insurance company, they usually have a nurse that can help you. Primary Care Provider Care Physician No Primary Time spent on discharge: > 30 minutes SMITH ARMENDARIZ May 04, 2017 11:17
--- NOTE | 2017-05-04 11:21 | CONS ---
Date/Time of Note Date/Time of Note DATE: 05/04/17 TIME: 11:20 Assessment/Plan Assessment/Plan Chief Complaint/Hosp Course #Diffuse LAD with periaortic retroperitoneal, retrocrural, right inguinal and right external iliac lymphadenopathy. #Bulky mediastinal and bilateral hilar lymphadenopathy is worrisome for lymphoma or beto metastatic disease. #Indeterminate sclerotic lesions are identified at the spine most notably at the anterior T5 , T9, T11, T12 and L1 vertebral bodies. These may represent bone islands or osseous metastatic disease. -pt is no confirmed to have metastatic prostate cancer -will initiate treatment in our office with Lupron and Zometa. given his bulky disease, will likely start Zytiga upfront per LATITUDE trial whic demonstrated overall survival when used in castrate sensitive patients -LDH mildly elevated to 727 but uric acid ok at 5.2. no signs of tumor lysis at this time -will check Uric acid and LDH in case of highly proliferative lymphoma -ESR ok at 15 -HIV and hep panel are both negative -pt may follow up with me in clinic in 1-2 weeks Problems: Consultation Date/Type/Reason Admit Date/Time Apr 30, 2017 at 12:10 Initial Consult Date 04/30/17 Type of Consultation: oncology Reason for Consultation prostate cancer Referring Provider: SMITH ARMENDARIZ 24 HR Interval Summary Free Text/Dictation pt now confirmed to have prostate cancer Exam/Review of Systems Vital Signs Vitals Vital Signs Date Time Temp Pulse Resp B/P Pulse Ox O2 Delivery O2 Flow Rate FiO2 05/04/17 07:43 98.1 91 18 142/83 97 Intake and Output 05/03/17 05/03/17 05/04/17 15:00 23:00 07:00 Intake Total 1400 ml 480 ml Output Total 600 ml Balance 1400 ml -120 ml Exam Constitutional: alert, oriented Psych: no complaints Head: normocephalic Eyes: nl conjunctiva ENMT: nl external ears & nose Neck: non-tender, supple Respiratory: clear to auscultation, normal air movement Cardiovascular: regular rate and rhythm Gastrointestinal: soft Musculoskeletal: nl gait and stance Results Result Diagram: 04/30/17 0519 05/01/17 0451 Medications Medications Current Medications Ondansetron HCl (Zofran Inj) 4 mg Q6H PRN IV NAUSEA AND/OR VOMITING Last administered on 05/04/17 08:33; Admin Dose 4 MG; Start 04/30/17 at 00:00 Acetaminophen (Tylenol Tab) 650 mg Q6H PRN PO PAIN LEVEL 1-3 OR FEVER Last administered on 05/03/17 10:51; Admin Dose 650 MG; Start 04/30/17 at 00:00 Morphine Sulfate (morphine) 2 mg Q4H PRN IV SEVERE PAIN LEVEL 7-10 Last administered on 05/04/17 08:33; Admin Dose 2 MG; Start 04/30/17 at 00:00 Famotidine (Pepcid) 20 mg Q12 PO Last administered on 05/04/17 08:33; Admin Dose 20 MG; Start 04/30/17 at 09:00 Hydralazine HCl (Apresoline) 10 mg Q4H PRN IV ELEVATED SYSTOLIC BP Last administered on 05/01/17 02:25; Admin Dose 10 MG; Start 05/01/17 at 02:30 Amlodipine Besylate (Norvasc) 5 mg DAILY PO Last administered on 05/04/17 08: 34; Admin Dose 5 MG; Start 05/02/17 at 12:30 Acetaminophen/ Hydrocodone Bitart ([place] (10/325)) 1 tab Q6H PRN PO PAIN; Start 05/04/17 at 11:30 Pregabalin (Lyrica) 50 mg TID PO ; Start 05/04/17 at 11:30 SAUL JOY M.D. May 04, 2017 11:21
[2017-05-04] MEDS ORDERED: PREGABALIN 50 MG CAP PO SCH (11:30)
[2017-05-04] MEDS ORDERED: HYDROCODONE/APAP (10/325) TAB PO PRN (11:30)
--- NOTE | 2017-05-04 12:45 | RADRPT ---
PROCEDURE: XR Left Shoulder. CLINICAL INDICATION: Left shoulder pain. TECHNIQUE: Three views. Frontal internal rotation, frontal external rotation, and scapular Y-view . COMPARISON: 04/10/2017. FINDINGS: There is no fracture or dislocation. The soft tissues are normal. Articular surfaces are intact. There is no lytic or blastic lesion. There is no radiopaque foreign body. IMPRESSION: 1. Normal images of the left shoulder. RPTAT: QQ .Tato Garcia MD, MD Date Time Electronically viewed and signed by .Tato Garcia MD, MD on 05/04/2017 12:45 .R/
[2017-05-04] MEDS ORDERED: PREG50CA PO (13:04)
[2017-05-04] MEDS ORDERED: AMLO-145 PO (13:04)
[2017-05-04] MEDS ORDERED: Hydrocodone/Apap (10/325) PO (13:04)
--- NOTE | 2017-05-04 13:04 | PDOCDIS ---
Discharge Instructions DIAGNOSIS Discharge Diagnosis * Newly diagnosed Metastatic Prostate Cancer * L shoulder pain likely 2/2 Mets * Hypertension : (new diagnosis): Controlled . CONDITION Patient Condition: Stable HOME CARE INSTRUCTIONS: Special Diet: regular ACTIVITY: Activity Restrictions: Slowly Increase Activity Avoid heavy lifting FOLLOW UP/APPOINTMENTS Follow-up Plan Call Dr. Silva's office for follow-up. She can help with your cancer Name, Degree: Lakia Silva MD Specialty: Oncology, Hematology Comments: Office Address: [address] [place] [address] [address] [place] [address] Office or [phone] (after hours) Office Followup with your primary doctor within the next 1-2 weeks. If you don't have one please let someone know, we can give you resources that may help you pick one. You may call Dr Luke Suárez's office. he's accepting new patients Name, Degree: Luke Suárez MD Specialty: Internal Medicine Comments: Office Address: [address] [place] [address] [address] [place] [address] Office Office You may also call your insurance company to assign one to you. Review your medication list with your nurse before leaving and if you need new prescriptions please let your nurse know. I may have made changes to your home medications or given you new prescriptions, please let your primary doctor know as well. Stay compliant with your medications and report any side effects to your PCP or pharmacist. Return to the ER if you have any concerns and cannot reach your doctors or call your insurance company, they usually have a nurse that can help you. SMITH ARMENDARIZ May 04, 2017 13:04
[2017-05-04] MEDS ORDERED: KETOROLAC 30 MG INJ IV STA (13:59)
[2017-05-04 14:12] VITALS: BP 106/69; RESP 23
[2017-05-04 14:16] VITALS: BP 132/80; RESP 16
--- NOTE | 2017-05-05 10:52 | QN ---
Documentation Comment LATE PROGRESS NOTE DATE OF SERVICE: 05/03/17 SUBJECTIVE: c/o of Lethargy and abd fullness. OBJECTIVE: Vital Signs Date Time Temp Pulse Resp B/P Pulse Ox O2 Delivery O2 Flow Rate FiO2 05/03/17 14:00 98.3 80 20 111/74 96 04/30/17 00:13 Room Air Intake and Output 05/02/17 05/02/17 05/03/17 15:00 23:00 07:00 Intake Total 1180 ml 240 ml Output Total 1100 ml 2 ml Balance 80 ml 238 ml Exam Constitutional: alert, oriented, No distress Head: atraumatic, normocephalic Eyes: PERRL, No icteric Neck: non-tender, supple Respiratory: clear to auscultation Cardiovascular: regular rate and rhythm, No murmurs/extra sounds Gastrointestinal: ascites, non-tender, soft Extremities: No edema Neurological: nl mental status, No focal weakness Results Result Diagram: 04/30/17 0519 05/01/17 0451 Medications Medications Current Medications Ondansetron HCl (Zofran Inj) 4 mg Q6H PRN IV NAUSEA AND/OR VOMITING Last administered on 05/01/17 10:16; Admin Dose 4 MG; Start 04/30/17 at 00:00 Acetaminophen (Tylenol Tab) 650 mg Q6H PRN PO PAIN LEVEL 1-3 OR FEVER Last administered on 05/03/17 10:51; Admin Dose 650 MG; Start 04/30/17 at 00:00 Morphine Sulfate (morphine) 2 mg Q4H PRN IV SEVERE PAIN LEVEL 7-10 Last administered on 05/03/17 09:38; Admin Dose 2 MG; Start 04/30/17 at 00:00 Famotidine (Pepcid) 20 mg Q12 PO Last administered on 05/03/17 09:18; Admin Dose 20 MG; Start 04/30/17 at 09:00 Hydralazine HCl (Apresoline) 10 mg Q4H PRN IV ELEVATED SYSTOLIC BP Last administered on 05/01/17 02:25; Admin Dose 10 MG; Start 05/01/17 at 02:30 Amlodipine Besylate (Norvasc) 5 mg DAILY PO Last administered on 05/03/17 09: 18; Admin Dose 5 MG; Start 05/02/17 at 12:30 Acetaminophen/ Hydrocodone Bitart ([place] (5/325)) 1 tab Q6H PRN PO PAIN LEVEL 6 -10 Last administered on 05/03/17t 16:03; Admin Dose 1 TAB; Start 05/03/17 at 13:30 LABS AND IMAGING: [facility] a non-profit [facility] [address] [place] [address] ; Lab No: [id number] P Date: 05/01/2017 PRELIMINARY REPORT SPECIMEN: Right inguinal lymph node This preliminary microscopic diagnosis is based upon material currently available for examination. Final Pathological diagnosis is pending completion of one or more of the following studies: ( ) Special stains ( X ) Immunoperoxidase stains pending ( ) Slides consultation ( ) Examination of additional sections in processing MICROSCOPIC DESCRIPTION: H&E stained sections of the needle core biopsies demonstrate metastatic adenocarcinoma characterized by crowded and packed small glands lined by cuboidal to columnar epithelial cells that contain round, oval, irregularly dark nuclei with distinct nucleoli and a moderate amount of vacuolated eosinophilic cytoplasm. Mitotic figures are occasionally seen. The tumor is surrounded by a desmoplastic fibrous connective tissue stroma. No lymphoid tissue is noted. PRELIMINARY MICROSCOPIC DIAGNOSIS: Right inguinal lymph node, ultrasound-guided needle core biopsies: -- Metastatic adenocarcinoma (please see comment). COMMENT: Immunohistochemical stains will be performed to verify the primary origin of the tumor and a final report will follow. BETTIE/tamara Date of Service: 05/01/17; Date Received: 05/01/17 Dictated: 05/02/17; Transcribed: 05/02/17; Sent by Fax: 05/02/17; Reviewed: STANFORD Venegas M.D. Pathologist Electronically Signed 05/02/2017 SHARIFA CENTENO M.D. PATIENT: ASHA WHITFIELD Process Planner of Laboratory AGE/SEX/: 62/M 1955 MR NO: [id number] VISIT: [id number] ROOM NO: PHYSICIAN: Sonia STEINBERG DANIEL TISSUE EXAMINATION REPORT ASSESSMENT / PLAN: 62-year-old male with no significant past medical history was intermittent abdominal pain was found to have moderate periaortic retroperitoneal and retrocrural lymphadenopathy, moderate right inguinal and right external iliac lymphadenopathy, sigmoid diverticulosis and few tiny nodules in the both lung bases, worrisome for malignancy.: s/p R inguinal node biopsy. 1. Metastatic adenoca, source pending 2. New HTN: patient has had recurrent episodes of significantly elevated BP. PLAN Patient was notified of his diagnosis, questioned answered. I also spoke with his cousin via telephone at his request and told her of his diagnosis and answered questions. We will await path results of primary and final oncology recommendations. Patient was in fairly good spirits at the end of the visit. Nursing notified to keep close eye on him. time: >40mins. SMITH ARMENDARIZ May 05, 2017 10:52
== END 2017-05-04 15:30 | disposition home or self-care (01) | DRG 715 ==
LOC: E/R 18:39 → UNDOADMOB 23:10 → PP2 23:10 → INTOOBSV 23:10 → OBSVTOIN 23:10 → PP2 04-30 00:17 → OBSVTOIN 04-30 12:10
PROVIDERS: ADMIT Internal Medicine; ATTEND Internal Medicine
PROC: 07BH3ZX Excision of Right Inguinal Lymphatic, Percutaneous Approach, Diagnostic (ICD-10-PCS; principal; 2017-05-01)
DX: C61 Malignant neoplasm of prostate (principal); C79.51 Secondary malignant neoplasm of bone; C77.4 Secondary and unspecified malignant neoplasm of inguinal and lower limb lymph nodes; E83.42 Hypomagnesemia; R59.1 Generalized enlarged lymph nodes; I10 Essential (primary) hypertension; Z87.891 Personal history of nicotine dependence
CPT/HCPCS: 36415; 71260; 73030; 74176; 76942; 80048; 80053; 80061; 81003; 82270; 82728; 83540; 83615; 83690; 83735; 84100; 84436; 84479; 84560; 85025; 85610; 85651; 85730; 86703; 86704; 86709; 86803; 87340; 88307; 88313; 96374; 96375; 96376; J0360; J1885; J2270; J2405; J3475; J7030; J7120; Q9967

== ENCOUNTER 2017-07-24 10:33 | Emergency (ER) | END 2017-07-24 14:41 | disposition short-term general hospital (02) ==